=== PATIENT | male | born 1940 | race Caucasian/White ===

== ENCOUNTER 2020-11-17 07:02 | Observation (INO) ==
[~2020-11-17 07:02] MED LIST: Buffered Lidocaine 1% SYRIN 1 ml INTRADERM ONE; Lactated Ringers 1000 ml BAG 1,000 ML IV SCH
[2020-11-17] MEDS ORDERED: cefTRIAXone 2 GM ADDV.VIAL ONE (07:26)
[2020-11-17] MEDS ORDERED: Ketamine HCL 50 mg/ml 10 ml VIAL (500 MG) ONE (08:29)
[2020-11-17] MEDS ORDERED: Iohexol 180 (CONTRAST) 10 ML SDV IV ONE (08:56)
[2020-11-17] MEDS ORDERED: Propofol 10 MG/ML 20 ML BTL ONE (09:04)
[2020-11-17] MEDS ORDERED: Lidocaine 2% PF 5 ML VIAL ONE (09:04)
[2020-11-17] MEDS ORDERED: fentaNYL 100 mcg/2 ml 50 MCG/ML VIAL ONE ×2 (09:04→11:58)
[2020-11-17] MEDS ORDERED: diPHENhydraMINE IV 50 MG/ML 1 ml VIAL (BENADRYL) IV PRN (09:17)
[2020-11-17] MEDS ORDERED: Naloxone 0.4 mg VIAL 0.4 mg/ml 1 ml VIAL IV PRN (09:17)
[2020-11-17] MEDS ORDERED: EPHEDrine (Pressors) 50 MG/ML VIAL ONE (09:38)
[2020-11-17] MEDS ORDERED: Ondansetron 4 mg VIAL 2 MG/ML 2 ml VIAL ONE (09:50)
[2020-11-17] MEDS: fentaNYL 100 mcg/2 ml 50 MCG/ML VIAL IV PRN ×2 (11:59→12:17)
[2020-11-17] MEDS: NS 0.9% 1000 ml BAG 1,000 ML IV SCH ×2 (14:00→21:25)
[2020-11-17] MEDS ORDERED: oxyCODONE/Acetamin 5/325 mg TAB PO PRN (14:18)
[2020-11-17] MEDS ORDERED: Lidocaine 2% JELLY 6 ML TOPICAL PRN (14:26)
[2020-11-17] MEDS ORDERED: ERGOCALCIFEROL 1000 UNIT PO SCH (21:00)
[2020-11-18] MEDS: NS 0.9% 1000 ml BAG 1,000 ML IV SCH (04:26)
[2020-11-18 08:10] LABS: ABS Basophils 0.1 10^3/ul (0-0.2); ABS Eosinophils 0.2 10^3/ul (0-0.6); ABS Monocytes 1.1 10^3/ul (0-0.8); ABS Neutrophils 8.9 10^3/ul (1.5-7.7); Eosinophil % 2.1 %; Hematocrit 36 % (42-52); Hemoglobin 11.9 g/dL (14.0-18.0); Lymphocyte % 8.7 %; Mean Corpuscular HGB Conc 33 g/dL (31-36); Mean Corpuscular Hemoglobin 32 pg (27-31); Mean Corpuscular Volume 98 fL (80-94); Mean Platelet Volume 8.5 fL (7.4-10.4); Platelet Count 172 10^3/uL (150-450); Red Blood Count 3.68 10^6 /uL (4.18-5.48); Red Cell Distribution Width 13 % (10-15); White Blood Count 11.3 10^3/uL (3.5-10.8)
[2020-11-18] MEDS ORDERED: Insulin GLARGINE 100 un/ml 10 ml VIAL SUBCUT SCH (09:00)
[2020-11-18] MEDS ORDERED: PTO: Empagliflozin (NF) 25 MG TABLET PO SCH (09:00)
[2020-11-18 11:19] VITALS: BP 95/50
== END 2020-11-18 11:25 | disposition home or self-care (01) ==
LOC: OR 07:02 → SSU 07:02
PROVIDERS: ADMIT Urology; ATTEND Urology